=== PATIENT | female | born 2000 | race Caucasian/White ===

== ENCOUNTER 2018-11-19 14:52 | Emergency (ER) | payer OTHER ==
--- NOTE | 2018-11-19 15:36 | EDPHY ---
H & P Stated Complaint: Cough, congestion, bilateral ear pain, body aches, st for 1-2 weeks Time Seen by Provider: 11/19/18 15:10 HPI/ROS: 18 yo F presents with 2 weeks of cough, nasal congestion, sore throat and now is having bilateral ear aches. She goes to college in [place], [place] and lives in a sorority house where several housemates have recently been ill. hx of psoriasis Review of systems as per hpi-bilateral ear pain General positive fevers positive chills no weakness HEENT no eye pain no eye discharge. No eye redness, positive sore throat Respiratory positive cough, no shortness of breath Cardiac no chest pain, no peripheral edema GI no abdominal pain, no diarrhea, no constipation, no nausea, no vomiting no flank pain, no hematuria, no dysuria Musculoskeletal positive myalgias, no joint pain Heme no easy bruising, no easy bleeding Endo no polyuria, no polydipsia Skin no rashes, no pruritus Neuro no syncope, no dizziness, no headaches Psych is no suicidal ideation, no homicidal ideation Source: Patient Exam Limitations: No limitations - Personal History Current Tetanus Diphtheria and Acellular Pertussis (TDAP): Yes - Medical/Surgical History Hx Asthma: No Hx Chronic Respiratory Disease: No Hx Diabetes: No Hx Cardiac Disease: No Hx Renal Disease: No Hx Cirrhosis: No Hx Alcoholism: No Hx HIV/AIDS: No Hx Splenectomy or Spleen Trauma: No Other PMH: denies - Family History Significant Family History: No pertinent family hx - Social History Smoking Status: Never smoked Alcohol Use: Occasionally Drug Use: None - Physical Exam Exam: 18-year-old Alert and oriented nontoxic appearance, no acute distress afebrile Atraumatic normocephalic Extraocular muscles intact, anicteric Left TM-erythematous, with cloudy fluid behind drum, right TM no evidence of fluid however mildly erythematous Nares mild yellowish discharge Oropharynx mild erythema no tonsillar swelling no exudate no uvular deviation, tolerating own secretions Neck supple no lymphadenopathy Lungs clear to auscultation bilaterally Heart regular rate and rhythm Abdomen normoactive bowel sounds soft nontender Extremities no cyanosis clubbing or edema Skin no rash Constitutional: Initial Vital Signs Temperature (C) 37.1 C 11/19/18 15:14 Heart Rate 108 H 11/19/18 15:14 Respiratory Rate 16 11/19/18 15:14 Blood Pressure 116/70 11/19/18 15:14 O2 Sat (%) 96 11/19/18 15:14 O2 Delivery Mode Room Air Allergies/Adverse Reactions: No Known Allergies Allergy (Verified 03/30/13 18:55) Home Medications: Medication Instructions Recorded Amoxicillin/Clavulanate Pot 875 mg PO BID #20 tab 11/19/18 [Augmentin 875 MG TAB (*)] Bc Pills 11/19/18 VYVANSE 11/19/18 Medical Decision Making - Diagnostics Imaging Results: Imaging Impressions Chest X-Ray 11/19/18 15:31 Impression: No pneumonia. Suspect airways disease. ED Course/Re-evaluation: Patient seen and evaluated for cough cold nasal congestion, sore throat, ear pain. Several weeks duration, however ear pain just began the last few days. Chest x-ray negative Impression Bilateral otitis media Bronchitis Plan Augmentin 875 twice daily times 10 days Otherwise symptomatic care, rest drink plenty fluids acetaminophen as needed for fever, ibuprofen as needed for pain Follow-up primary care Differential Diagnosis: Differential diagnosis considered but not limited to: Influenza, URI, bronchitis, viral syndrome, pharyngitis, otitis media, otitis externa, pneumonia Departure - Departure Disposition: Home, Routine, Self-Care Clinical Impression: Bilateral otitis media, Bronchitis Condition: Good Instructions: Ear Infection (ED), Acute Bronchitis (ED) Referrals: Pratima Villarreal MD [Primary Care Provider] - As per Instructions Prescriptions: Amoxicillin/Clavulanate Pot [Augmentin 875 MG TAB (*)] 875 mg PO BID #20 tab
[2018-11-19 16:25] VITALS: BP 124/66
== END 2018-11-19 16:24 | disposition home or self-care (01) ==
LOC: CED 14:52
DX: H66.93 Otitis media, unspecified, bilateral (principal); J40 Bronchitis, not specified as acute or chronic
CPT/HCPCS: 71046-PO; 99283-ER